=== PATIENT | female | born 1965 | race Caucasian/White ===

== ENCOUNTER 2018-07-15 18:35 | Emergency (ER) | payer OTHER ==
[~2018-07-15] VITALS: Ht 157.5 cm; Wt 49.9 kg
[2018-07-15] MEDS ORDERED: PROPANOLOL (18:44)
[2018-07-15] MEDS ORDERED: SYNTHROID125 MCG (18:45)
== END 2018-07-15 21:08 | disposition home or self-care (01) ==
LOC: ER 18:35
DX: M94.0 Chondrocostal junction syndrome [Tietze] (principal); F06.4 Anxiety disorder due to known physiological condition

== ENCOUNTER 2020-03-08 14:49 | Emergency (ER) | payer OTHER ==
[~2020-03-08] VITALS: Ht 165.1 cm; Wt 70.3 kg
[~2020-03-08 14:49] MED LIST: PROPANOLOL; SYNTHROID125 MCG
[2020-03-08] MEDS ORDERED: SYMBICORT 16010.2 GM IH (17:05)
[2020-03-08] MEDS ORDERED: MUCINEX DM ER1 EAC1 PO (17:05)
[2020-03-08] MEDS ORDERED: BUTALB-ASPIRIN1 EACH PO (17:05)
[2020-03-08] MEDS ORDERED: TESSALON PERLE100 MG PO (17:05)
[2020-03-08] MEDS ORDERED: AIRBORNE EFFER1 EACH PO (17:05)
== END 2020-03-08 17:09 ==
LOC: ER 14:49
DX: U07.1 COVID-19 (principal); J06.9 Acute upper respiratory infection, unspecified

== ENCOUNTER 2020-07-14 09:43 | Emergency (ER) | payer OTHER ==
[~2020-07-14] VITALS: Ht 157.5 cm; Wt 54.4 kg
[~2020-07-14 09:43] MED LIST changes: +AIRBORNE EFFER1 EACH PO; +BUTALB-ASPIRIN1 EACH PO; +MUCINEX DM ER1 EAC1 PO; +SYMBICORT 16010.2 GM IH; +TESSALON PERLE100 MG PO
== END 2020-07-14 11:48 | disposition home or self-care (01) ==
LOC: ER 09:43
DX: S60.471A Other superficial bite of left index finger, initial encounter (principal); S60.572A Other superficial bite of hand of left hand, initial encounter; S60.872A Other superficial bite of left wrist, initial encounter; W55.01XA Bitten by cat, initial encounter; Y93.89 Activity, other specified; Y92.098 Other place in other non-institutional residence as the place of occurrence of the external cause; Y99.8 Other external cause status

== ENCOUNTER 2023-04-04 14:56 | Emergency (ER) | payer OTHER ==
[~2023-04-04] VITALS: Ht 154.9 cm; Wt 56.7 kg
== END 2023-04-04 20:57 | disposition home or self-care (01) ==
LOC: ER 14:58
DX: S30.0XXA Contusion of lower back and pelvis, initial encounter (principal); S70.02XA Contusion of left hip, initial encounter; S80.02XA Contusion of left knee, initial encounter; W17.89XA Other fall from one level to another, initial encounter; Y93.9 Activity, unspecified; Y92.018 Other place in single-family (private) house as the place of occurrence of the external cause; Y99.9 Unspecified external cause status

== ENCOUNTER 2023-12-08 21:05 | Emergency (ER) | payer OTHER ==
[~2023-12-08] VITALS: Ht 154.9 cm; Wt 60.8 kg
[2023-12-08] MEDS ORDERED: KETOROLAC TROMETHAMINE 60 MG VIAL IM ONE (23:30)
[2023-12-09] MEDS ORDERED: KETO10TA2 PO (00:58)
== END 2023-12-09 01:13 ==
LOC: ER 21:06
DX: S99.921A Unspecified injury of right foot, initial encounter (principal); W18.30XA Fall on same level, unspecified, initial encounter; Y93.9 Activity, unspecified; Y92.9 Unspecified place or not applicable; Y99.9 Unspecified external cause status